=== PATIENT | female | born 1970 | race Caucasian/White ===

== ENCOUNTER 2020-03-29 05:52 | Inpatient (IN) ==
[2020-03-29] MEDS ORDERED: Buffered Lidocaine 1% SYRIN 1 ml INTRADERM ONE (06:00)
[2020-03-29] MEDS ORDERED: Acetaminophen IV 1 GM/100ML 1,000 MG/100 ML VIAL IVPB ONE (06:00)
[2020-03-29] MEDS ORDERED: Acetaminophen IV 1 GM/100ML 100 ML ONE (06:21)
[2020-03-29] MEDS ORDERED: ceFAZolin 1 GM ADVAN 1 GM ADDV.VIAL IVPB ONE (06:21)
[2020-03-29] MEDS ORDERED: Heparin 5000 UNITS/ML 1 mL VIAL ONE (06:21)
[2020-03-29] MEDS ORDERED: ceFAZolin 2 GM PREMIX 2 GM/50 ML BAG ONE (06:21)
[2020-03-29] MEDS: Lactated Ringers 1000 ml BAG 1,000 ML IV SCH ×4 (06:35→22:24)
[2020-03-29] MEDS ORDERED: Bupivacaine 0.25% SDV 30 ML ONE (07:08)
[2020-03-29] MEDS ORDERED: Lidocaine 2% PF 5 ML VIAL ONE (07:17)
[2020-03-29] MEDS ORDERED: Propofol 10 MG/ML 20 ML BTL ONE (07:17)
[2020-03-29] MEDS ORDERED: Midazolam 2 mg/2 ml VIAL 1 mg/ml 2 ml VIAL (2 mg) ONE (07:18)
[2020-03-29] MEDS ORDERED: Rocuronium 50 mg VIAL 10 mg/ml 5 ml VIAL (50 mg) ONE (07:18)
[2020-03-29] MEDS ORDERED: fentaNYL 100 mcg/2 ml 50 MCG/ML VIAL ONE ×2 (07:38→09:44)
[2020-03-29] MEDS ORDERED: EPHEDrine (Pressors) 50 MG/ML VIAL ONE (07:51)
[2020-03-29] MEDS ORDERED: Dexamethasone IV 4 MG/ML VIAL 1 ml VIAL ONE (08:23)
[2020-03-29] MEDS ORDERED: Ondansetron 4 mg VIAL 2 MG/ML 2 ml VIAL ONE (08:23)
[2020-03-29] MEDS ORDERED: Metoclopramide 5 MG/ML VIAL (10 mg) ONE (08:23)
[2020-03-29] MEDS ORDERED: Naloxone 0.4 mg VIAL 0.4 mg/ml 1 ml VIAL IV PRN (08:31)
[2020-03-29] MEDS ORDERED: Ondansetron 4 mg VIAL 2 MG/ML 2 ml VIAL IV PRN (10:04)
[2020-03-29] MEDS ORDERED: HYDROmorphone 1 MG/1 ML SYRINGE ONE (10:25)
[2020-03-29] MEDS: HYDROmorphone 1 MG/1 ML SYRINGE IV PRN ×5 (10:26→11:02)
[2020-03-29] MEDS: HYDROmorphone 0.5 MG/0.5 ML SYRINGE IV SLOW PU PRN (16:03)
[2020-03-29] MEDS ORDERED: Heparin 5000 UNITS/ML 1 mL VIAL SUBCUT SCH (18:01)
[2020-03-29] MEDS: Famotidine IV 10 MG/ML 2 ml VIAL (20 mg) IV SLOW PU SCH (21:00)
[2020-03-29] MEDS: HYDROcodone/ACET. 7.5/325 LIQ 15 ML UDC PO PRN (21:00)
[2020-03-30] MEDS: HYDROmorphone 0.5 MG/0.5 ML SYRINGE IV SLOW PU PRN (03:58)
[2020-03-30] MEDS: Lactated Ringers 1000 ml BAG 1,000 ML IV SCH (04:53)
[2020-03-30] MEDS: Heparin 5000 UNITS/ML 1 mL VIAL SUBCUT SCH ×2 (05:44→14:26)
[2020-03-30] MEDS: HYDROcodone/ACET. 7.5/325 LIQ 15 ML UDC PO PRN ×2 (08:44→15:38)
[2020-03-30] MEDS: Famotidine IV 10 MG/ML 2 ml VIAL (20 mg) IV SLOW PU SCH (08:45)
[2020-03-30] MEDS ORDERED: D5W 1/2 NS KCl 20 meq 1000 ml 1,000 ML IV SCH (11:00)
[2020-03-30 11:35] VITALS: BP 129/77
[2020-04-01] MEDS ORDERED: Scopolamine PATCH Remove NOTE PATCH OFF ONE (06:00)
== END 2020-03-30 15:41 | disposition home or self-care (01) | DRG 403 ==
LOC: AA 05:52 → SSU 11:42
PROVIDERS: ADMIT Surgery; ATTEND Surgery